=== PATIENT | female | born 2005 | race African-American/Black ===

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

== ENCOUNTER 2023-02-03 04:04 | Emergency (ER) | payer OTHER ==
--- NOTE | 2023-02-03 06:11 | ED ---
General Adult HPI - General Source: patient Mode of arrival: ambulatory Limitations: no limitations <Crispin Dunn - Last Filed: 02/03/23 06:38> <Farhan Campuzano - Last Filed: 02/03/23 08:16> - General Chief complaint: Vaginal Bleeding Stated complaint: Vaginal Bleeding Time Seen by Provider: 02/03/23 05:00 - History of Present Illness Initial comments: Dictation was produced using [employer] dictation software. please excuse any grammatical, word or spelling errors. Chief Complaint: 17-year-old female presents with vaginal bleeding and cramping History of Present Illness: 16-year-old female she last had her menstrual period back in November. She states she has had 2 positive test. She has not followed [facility] yet. States that since yesterday she started to have mild cram ping and vaginal bleeding. States that the cramping and stopped. She did pass couple clots. Patient denies any cramping at the moment. Denies any nausea or vomiting. No lightheadedness. She does have a 1-year-old child. The ROS documented in this emergency department record has been reviewed and confirmed by me. Those systems with pertinent positive or negative responses have been documented in the HPI. All other systems are other negative and/or noncontributory. (Crispin Dunn) - Related Data Home Medications Medication Instructions Recorded Confirmed Vit No.179/Iron/Folic 1 each PO DAILY 12/16/21 12/16/21 [ Tablet] Previous Rx's Medication Instructions Recorded Ibuprofen [Motrin] 600 mg PO Q6HR PRN #60 tab 12/18/21 Cephalexin [Keflex] 500 mg PO Q12HR 7 Days #14 cap 02/03/23 Allergies Allergy/AdvReac Type Severity Reaction Status Date / Time No Known Allergies Allergy Verified 02/03/23 04:55 Review of Systems ROS Other: All systems not noted in ROS Statement are negative. <Crispin Dunn - Last Filed: 02/03/23 06:38> ROS Other: All systems not noted in ROS Statement are negative. <Farhan Campuzano - Last Filed: 02/03/23 08:16> ROS Statement: Those systems with pertinent positive or pertinent negative responses have been documented in the HPI. Past Medical History Past Medical History: No Reported History History of Any Multi-Drug Resistant Organisms: None Reported Past Surgical History: No Surgical Hx Reported Past Anesthesia/Blood Transfusion Reactions: No Reported Reaction Past Psychological History: No Psychological Hx Reported Smoking Status: Never smoker Past Alcohol Use History: None Reported Past Drug Use History: None Reported <Crispin Dunn - Last Filed: 02/03/23 06:38> General Exam Limitations: no limitations <Crispin Dunn - Last Filed: 02/03/23 06:38> - General Exam Comments Initial Comments: PHYSICAL EXAM: General Impression: Alert and oriented x3, not in acute distress HEENT: Normocephalic atraumatic, extra-ocular movements intact, pupils equal and reactive to light bilaterally, mucous membranes moist. Cardiovascular: Heart regular rate and rhythm Chest: Able to complete full sentences, no retractions, no tachypnea Abdomen: abdomen soft, non-tender, non-distended, no organomegaly Musculoskeletal: Pulses present and equal in all extremities, no peripheral edema Motor: no focal deficits noted Neurological: CN II-XII grossly intact, no focal motor or sensory deficits noted Skin: Intact with no visualized rashes Psych: Normal affect and mood Pelvic exam: Refused (Crispin Dunn) Course Vital Signs 02/03/23 04:53 Temperature 98 F Pulse Rate 73 Respiratory 18 Rate Blood Pressure 140/82 O2 Sat by Pulse 100 Oximetry Medical Decision Making <Crispin Dunn - Last Filed: 02/03/23 06:38> - Lab Data Result diagrams: 02/03/23 06:39 02/03/23 06:39 <Farhan Campuzano - Last Filed: 02/03/23 08:16> - Medical Decision Making Was pt. sent in by a medical professional or institution (, PA, PRESS SMITH HELPER, urgent care, hospital, or intermediate...) When possible be specific @ -No Did you speak to anyone other than the patient for history (EMS, parent, family, police, friend...)? What history was obtained from this source @ -No Did you review nursing and triage notes (agree or disagree)? Why? @ -I reviewed and agree with nursing and triage notes Were old charts reviewed (outside hosp., previous admission, EMS record, old EKG, old radiological studies, urgent care reports/EKG's, intermediate records)? Report findings @ -No old charts were reviewed Differential Diagnosis (chest pain, altered mental status, abdominal pain women, abdominal pain men, vaginal bleeding, musculoskeletal, weakness, fever, dyspnea, syncope, headache, dizziness, GI bleed, back pain, seizure, CVA, palpatations, mental health)? @ -Differential Abdominal Pain Women: Appendicitis, Cholecystitis, diverticulosis, ischemic bowel, pancreatitis, hepatitis, UTI, gastroenteritis, AAA, incarcerated hernia, bowel obstruction, constipation, inflammatory bowel, hepatitis, peptic ulcer disease, splenic infarction, perforated viscus, vulvitis, ovarian torsion, PID, kidney stone, jennifer centa abruption, this is not meant to be an all-inclusive list EKG interpreted by me (3pts min.). @ -None done X-rays interpreted by me (1pt min.). @ -None done CT interpreted by me (1pt min.). @ -None done U/S interpreted by me (1pt. min.). @ -pending What testing was considered but not performed or refused? (CT, X-rays, U/S, labs)? Why? @ -None What meds were considered but not given or refused? Why? @ -None Did you discuss the management of the patient with other professionals (professionals i.e. , PA, PRESS SMITH HELPER, lab, RT, psych nurse, secondary social studies teacher, storage brine worker, teacher, health promotion officer, caser shoe parts)? Give summary @ -No Was smoking cessation discussed for >3mins.? @ -No Was critical care preformed (if so, how long)? @ -No Were there social determinants of health that impacted care today? How? (Homelessness, low income, unemployed, alcoholism, drug addiction, transportation, low edu. Level, literacy, decrease access to med. care, nursing home, rehab)? @ -No Was there de-escalation of care discussed even if they declined (Discuss DNR or withdrawal of care, Hospice)? DNR status @ -No What co-morbidities impacted this encounter? (DM, HTN, Smoking, COPD, CAD, Canc er, CVA, ARF, Chemo, Hep., AIDS, mental health diagnosis, sleep apnea, morbid obesity)? @ -None Was patient admitted / discharged? Hospital course, mention meds given and route, prescriptions, significant lab abnormalities, going to OR and other pertinent info. @ -17-year-old female presents with pelvic cramping and vaginal bleeding during alleged . She has not had a menstrual cycle for 2 months. Patient is well-appearing at bedside. Vital signs stable. Pending ultrasound and labs. Patient is signed out to Dr. Campuzano at 7 AM (Crispin Dunn) Ultrasound shows early IUP, patient is a positive, labs are unremarkable. She has follow up with obstetrics. (Farhan Campuzano) - Lab Data Lab Results 02/03/23 02/03/23 02/03/23 Range/Units 06:35 06:39 06:39 WBC 7.4 (4.0-11.0) k/uL RBC 4.14 (3.80-5.40) m/uL Hgb 13.1 (11.4-16.0) gm/dL Hct 39.1 (34.0-46.0) % MCV 94.4 (80.0-100.0) fL MCH 31.6 (25.0-35.0) pg MCHC 33.5 (31.0-37.0) g/dL RDW 13.6 (11.5-15.5) % Plt Count 256 (150-450) k/uL MPV 7.9 Neutrophils % 60 % Lymphocytes % 30 % Monocytes % 6 % Eosinophils % 1 % Basophils % 1 % Neutrophils # 4.5 (1.3-7.7) k/uL Lymphocytes # 2.2 (1.0-4.8) k/uL Monocytes # 0.5 (0-1.0) k/uL Eosinophils # 0.1 (0-0.7) k/uL Basophils # 0.0 (0-0.2) k/uL PT 10.6 (10.0-12.5) sec INR 1.0 (<1.2) APTT 27.2 (22.0-30.0) sec Sodium (137-145) mmol/L Potassium (3.5-5.1) mmol/L Chloride (98-107) mmol/L Carbon Dioxide (22-30) mmol/L Anion Gap mmol/L BUN (7-17) mg/dL Creatinine (0.52-1.04) mg/dL Est GFR (CKD-EPI)AfAm (>60 ml/min/1.73 sqM) Est GFR (CKD-EPI)NonAf (>60 ml/min/1.73 sqM) Glucose (74-99) mg/dL Calcium (8.4-10.2) mg/dL HCG, Quant mIU/mL Urine Color Urine Appearance (Clear) Urine pH (5.0-8.0) Ur Specific [place] (1.001-1.035) Urine Protein (Negative) Urine Glucose (UA) (Negative) Urine Ketones (Negative) Urine Blood (Negative) Urine Nitrite (Negative) Urine Bilirubin (Negative) Urine Urobilinogen (<2.0) mg/dL Ur Leukocyte Esterase (Negative) Urine RBC (0-5) /hpf Urine WBC (0-5) /hpf Ur Squamous Epith Cells (0-4) /hpf Amorphous Sediment (None) /hpf Urine Bacteria (None) /hpf Urine Mucus (None) /hpf Ur Yeast w Hyphae (None) /hpf Urine Yeast (Budding) (None) /hpf Blood Type A Positive Blood Type Recheck A Pos Bld Type Recheck Status No Antibody Screen NEGATIVE Spec Expiration Date 02/06/2023 - 233802/03/23 02/03/23 Range/Units 06:39 07:57 WBC (4.0-11.0) k/uL RBC (3.80-5.40) m/uL Hgb (11.4-16.0) gm/dL Hct (34.0-46.0) % MCV (80.0-100.0) fL MCH (25.0-35.0) pg MCHC (31.0-37.0) g/dL RDW (11.5-15.5) % Plt Count (150-450) k/uL MPV Neutrophils % % Lymphocytes % % Monocytes % % Eosinophils % % Basophils % % Neutrophils # (1.3-7.7) k/uL Lymphocytes # (1.0-4.8) k/uL Monocytes # (0-1.0) k/uL Eosinophils # (0-0.7) k/uL Basophils # (0-0.2) k/uL PT (10.0-12.5) sec INR (<1.2) APTT (22.0-30.0) sec Sodium 138 (137-145) mmol/L Potassium 4.3 (3.5-5.1) mmol/L Chloride 104 (98-107) mmol/L Carbon Dioxide 24 (22-30) mmol/L Anion Gap 10 mmol/L BUN 13 (7-17) mg/dL Creatinine 0.60 (0.52-1.04) mg/dL Est GFR (CKD-EPI)AfAm >90 (>60 ml/min/1.73 sqM) Est GFR (CKD-EPI)NonAf >90 (>60 ml/min/1.73 sqM) Glucose 94 (74-99) mg/dL Calcium 9.3 (8.4-10.2) mg/dL HCG, Quant 1935.6 mIU/mL Urine Color Light Yellow Urine Appearance Cloudy H (Clear) Urine pH 5.5 (5.0-8.0) Ur Specific [place] 1.020 (1.001-1.035) Urine Protein Trace H (Negative) Urine Glucose (UA) Negative (Negative) Urine Ketones Negative (Negative) Urine Blood Large H (Negative) Urine Nitrite Negative (Negative) Urine Bilirubin Negative (Negative) Urine Urobilinogen <2.0 (<2.0) mg/dL Ur Leukocyte Esterase Large H (Negative) Urine RBC 6 H (0-5) /hpf Urine WBC 12 H (0-5) /hpf Ur Squamous Epith Cells 44 H (0-4) /hpf Amorphous Sediment Rare H (None) /hpf Urine Bacteria Occasional H (None) /hpf Urine Mucus Occasional H (None) /hpf Ur Yeast w Hyphae Rare (None) /hpf Urine Yeast (Budding) Rare H (None) /hpf Blood Type Blood Type Recheck Bld Type Recheck Status Antibody Screen Spec Expiration Date Disposition <Crispin Dunn - Last Filed: 02/03/23 06:38> Is patient prescribed a controlled substance at d/c from ED?: No Time of Disposition: 07:52 <Farhan Campuzano - Last Filed: 02/03/23 08:16> Clinical Impression: Vaginal bleeding in , Threatened miscarriage in early , Bacteriuria during in first trimester Disposition: HOME SELF-CARE Condition: Good Instructions (If sedation given, give patient instructions): Threatened Miscarriage (ED) Prescriptions: Cephalexin [Keflex] 500 mg PO Q12HR 7 Days #14 cap Referrals: None,Stated [Primary Care Provider] - 1-2 days Liberty Powers MD [STAFF PHYSICIAN] - 1-2 days
[2023-02-03 06:42] VITALS: RESP 18
[2023-02-03 07:02] LABS: HCT 39.1 % (34.0-46.0); HGB 13.1 gm/dL (11.4-16.0); RBC 4.14 m/uL (3.80-5.40); WBC 7.4 k/uL (4.0-11.0)
[2023-02-03 07:03] LABS: Basophils % (A) 1 %; Eosinophils # (A) 0.1 k/uL (0-0.7); Eosinophils % (A) 1 %; Lymphocytes # (A) 2.2 k/uL (1.0-4.8); Lymphocytes % (A) 30 %; MCH 31.6 pg (25.0-35.0); MCHC 33.5 g/dL (31.0-37.0); MCV 94.4 fL (80.0-100.0); Mean Platelet Volume 7.9; Monocytes # (A) 0.5 k/uL (0-1.0); Monocytes % (A) 6 %; Neutrophils # (A) 4.5 k/uL (1.3-7.7); Neutrophils % (A) 60 %; Platelet Count 256 k/uL (150-450); RDW 13.6 % (11.5-15.5)
[2023-02-03 07:05] LABS: African American GFR (CKD) >90 (>60 ml/min/1.73 sqM); Anion Gap 10 mmol/L; Blood Urea Nitrogen 13 mg/dL (7-17); Calcium 9.3 mg/dL (8.4-10.2); Carbon Dioxide 24 mmol/L (22-30); Chloride 104 mmol/L (98-107); Glucose 94 mg/dL (74-99); Non-African American GFR(CKD) >90 (>60 ml/min/1.73 sqM); Potassium 4.3 mmol/L (3.5-5.1); Sodium 138 mmol/L (137-145)
[2023-02-03 07:06] LABS: Partial Thromboplastin Time 27.2 sec (22.0-30.0); Prothrombin Time 10.6 sec (10.0-12.5)
[2023-02-03 07:21] LABS: HCG,Quantitative Serum 1935.6 mIU/mL
--- NOTE | 2023-02-03 07:34 | US ---
EXAMINATION TYPE: Transabdominal DATE OF EXAM: 02/03/2023 5:51 AM COMPARISON: NONE CLINICAL INDICATION: Female, 17 years old with history of Vaginal bleeding; vaginal bleeding x 1 day. EXAM PERFORMED: Transabdominal (TA) EXAM MEASUREMENTS: GESTATIONAL AGE / DATING Physician Established: Not yet established Dates by LMP: LMP unknown ( Dates by First Scan: No prev Dates by Current Scan for: (6 weeks/1 days) EDC: 09/28/23 MATERNAL ANATOMY Uterus: 9.8 x 5.5 x 5.1cm Right Ovary: 3.4 x 2.6 x 2.3cm Left Ovary: 2.5 x 1.8 x 1.2cm Post CDS / Adnexa: wnl Presence of free fluid: No Presence of corpus luteal cyst: Yes in rt ovary measuring 2.5 x 2.1 x 2.1cm Presence of subchorionic bleed: No GESTATION / SURVEY CRL: 0.5cm (6 weeks/1 days) MSD: 0.85cm Out of range Yolk Sac (normal less than 6mm): 1.6mm Heart Rate: 141 bpm Rhythm: Normal IUP: Viable IUP Date of LMP: N/A Beta HcG (if available): N/A There is an anechoic area seen in the endometrium area with possible fetus. There does appear to be a flickering motion. IMPRESSION: Findings suggest early IUP. Correlate clinically with serial beta hCG and/or ultrasound. Corpus lutea l cyst.
[2023-02-03 08:10] LABS: Amorphous Sediment,Urine Rare /hpf; Appearance,Urine Cloudy (Clear); Bacteria,Urine Occasional /hpf; Bilirubin,Urine Negative (Negative); Blood,Urine Large (Negative); Budding Yeast,Urine Rare /hpf; Color,Urine Light Yellow; Glucose,Urine (UA) Negative (Negative); Hyphae Yeast, Urine Rare /hpf; Ketones,Urine Negative (Negative); Leukocyte Esterase,Urine Large (Negative); Mucus,Urine Occasional /hpf; Nitrite,Urine Negative (Negative); PH, Urine 5.5 (5.0-8.0); Protein,Urine Trace (Negative); RBC,Urine 6 /hpf (0-5); Squamous Epithelial Cell,Urine 44 /hpf (0-4); Urobilinogen,Urine <2.0 mg/dL (<2.0); WBC,Urine 12 /hpf (0-5)
[2023-02-03 08:33] VITALS: BP 107/59; PULSE 72; TEMP 98.3
== END 2023-02-03 08:25 | disposition home or self-care (01) ==
LOC: EC 04:04
DX: O20.0 Threatened abortion (principal); O23.91 Unspecified genitourinary tract infection in pregnancy, first trimester; R82.71 Bacteriuria; Z3A.00 Weeks of gestation of pregnancy not specified
CPT/HCPCS: 36415; 76801; 80048; 81001; 84702; 85025; 85610; 85730; 86850; 86900; 86901; 99284

== ENCOUNTER → 2023-02-05 | Outpatient (CLI) | payer OTHER | END | disposition home or self-care (01) | LOC: LABWHC1 11:33 | PROVIDERS: ATTEND Emergency Medicine | DX: O20.0 Threatened abortion (principal); Z3A.00 Weeks of gestation of pregnancy not specified | CPT/HCPCS: 36415; 84702 ==

== ENCOUNTER → 2023-02-10 | Outpatient (CLI) | payer OTHER ==
[2023-02-10 13:51] LABS: Basophils % (A) 1 %; Eosinophils # (A) 0.1 k/uL (0-0.7); Eosinophils % (A) 3 %; HCT 39.5 % (34.0-46.0); HGB 12.8 gm/dL (11.4-16.0); Lymphocytes # (A) 1.8 k/uL (1.0-4.8); Lymphocytes % (A) 34 %; MCH 30.7 pg (25.0-35.0); MCHC 32.4 g/dL (31.0-37.0); MCV 94.7 fL (80.0-100.0); Mean Platelet Volume 8.4; Monocytes # (A) 0.5 k/uL (0-1.0); Monocytes % (A) 9 %; Neutrophils # (A) 2.6 k/uL (1.3-7.7); Neutrophils % (A) 50 %; Platelet Count 293 k/uL (150-450); RBC 4.17 m/uL (3.80-5.40); RDW 13.7 % (11.5-15.5); WBC 5.2 k/uL (4.0-11.0)
== END | disposition home or self-care (01) ==
LOC: LABPAT 12:49
PROVIDERS: ATTEND Obstetrics & Gynecology
DX: Z01.812 Encounter for preprocedural laboratory examination (principal); O20.0 Threatened abortion; Z3A.00 Weeks of gestation of pregnancy not specified
CPT/HCPCS: 36415; 85025; 86850; 86900; 86901

== ENCOUNTER → 2023-08-12 | Outpatient (CLI) | payer OTHER ==
[2023-08-12 12:08] LABS: Glucose 3 Hour, Gest 139 mg/dL
== END | disposition home or self-care (01) ==
LOC: LABWHC1 08:16
PROVIDERS: ATTEND Obstetrics & Gynecology
DX: O99.810 Abnormal glucose complicating pregnancy (principal); Z3A.00 Weeks of gestation of pregnancy not specified
CPT/HCPCS: 36415; 82951; 82952

== ENCOUNTER 2023-10-27 15:37 | Outpatient (CLI) | payer OTHER ==
[2023-10-27] MEDS ORDERED: ONDANSETRON ODT 8 MG TAB.RAPDIS PO STA (16:30)
[2023-10-27] MEDS: PANTOPRAZOLE 40 MG TABLET PO STA (16:45)
[2023-10-27] MEDS: FAMOTIDINE 20 MG TAB PO STA (16:50)
[2023-10-27] MEDS: ONDANSETRON 4 MG TAB PO STA (16:51)
[2023-10-27 17:33] VITALS: BP 138/66; PULSE 94; RESP 16; TEMP 98.3
--- NOTE | 2023-11-08 16:10 | P.MSEPDOC ---
Presenting Problems - Arrival Data Date of Arrival on Unit: 10/27/23 Time of Arrival on Unit: 17:20 Mode of Transport: Ambulatory - Complaint OB-Reason for Admission/Chief Complaint: Other Comment: pt arrived c/o nausea since yesterday an had a little bit of diarrhea today Medical History - Information : 2 Para: 1 Term: 1 : 0 Abortions: Spontaneous or Elective: 0 Number of Living Children: 1 - Gestational Age Gestational Age by ESTEBAN (wks/days): 28 Weeks and 3 Days Review of Systems - Review of Systems Constitutional: No problems Breast: No problems ENT: No problems Cardiovascular: No problems Respiratory: No problems Gastrointestinal: No problems Genitourinary: No problems Musculoskeletal: No problems Neurological: No problems Skin: No problems Vital Signs - Temperature Temperature: 98.3 F Temperature Source: Oral - Pulse Right Brachial Pulse Rate: 94 Pulse Assessment Method: Automatic Cuff - Respirations Respiratory Rate: 16 Oxygen Delivery Method: Room Air O2 Sat by Pulse Oximetry: 98 - Blood Pressure Right Arm Blood Pressure: 138/66 Blood Pressure Mean: 90 Blood Pressure Source: Automatic Cuff Medical Screen Scoring - Cervical Exam Membranes: Intact - Uterine Contractions Intensity: Absent Resting: Soft to palpation - Assessment - Baby A Baseline FHR: 150 Heart Rate - NICHD Category: Category I (Normal) NST: Reactive Physician Notification - Physician Notified Physician Notified Date: 10/27/23 Physician Notified Time: 16:30 Physician: Liberty Powers Order Received: Yes - Notification Comment Comment: may give zofran 4 mg po and pecide 20mg po. if patient is comfortable and taking fluids after may be discharged to home and have patient keep her scheduled appointment Maternal Triage Index - Non-Urgent/Priority 4 Non-Urgent Priority 4: Yes Criteria Met for Priority 4: pt arrived c/o nausea since last night and a little bit of diarrhea today, pt denies any problems with th just that shes gestational diabetic on diet control. pt states is moving a lot and ot denies any contrations or leaking of fluid Disposition - Disposition OB Disposition: Discharge to home Discharge Date: 10/27/23 Discharge Time: 17:25 I agree with the RN Medical Screening Exam: Yes Physician's MSE Comment: I have neither seen nor examined the patient Case reviewed; plan agreed upon as documented in EMR&OBIX.: Yes Diagnosis: MATERNAL CARE FOR PROBLEM, UNSP, THIRD * DO NOT USE *
== END 2023-10-27 17:25 | disposition home or self-care (01) ==
LOC: FBPOP 15:37
PROVIDERS: ATTEND Obstetrics & Gynecology
DX: O99.613 Diseases of the digestive system complicating pregnancy, third trimester (principal); R19.7 Diarrhea, unspecified; O26.893 Other specified pregnancy related conditions, third trimester; R11.0 Nausea; Z3A.28 28 weeks gestation of pregnancy
CPT/HCPCS: 59025; G0463; 99213

== ENCOUNTER 2023-12-31 19:00 | Outpatient (CLI) | payer OTHER ==
[2023-12-31 20:13] VITALS: BP 138/76; PULSE 100; RESP 16; TEMP 96.5
--- NOTE | 2024-02-03 09:24 | P.MSEPDOC ---
Presenting Problems - Arrival Data Date of Arrival on Unit: 12/31/23 Time of Arrival on Unit: 18:55 Mode of Transport: Ambulatory - Complaint OB-Reason for Admission/Chief Complaint: Rule Out PROM Medical History - Information : 3 Para: 1 Term: 1 : 0 Abortions: Spontaneous or Elective: 1 Number of Living Children: 1 - Gestational Age Gestational Age by ESTEBAN (wks/days): 37 Weeks and 5 Days - History Complications: GDM, GBS+ Review of Systems - Review of Systems Constitutional: No problems Breast: No problems ENT: No problems Cardiovascular: No problems Respiratory: No problems Gastrointestinal: No problems Genitourinary: No problems Musculoskeletal: No problems Neurological: No problems Skin: No problems Vital Signs - Temperature Temperature: 96.5 F Temperature Source: Temporal Artery Scan - Pulse Pulse Oximetery Pulse Rate: 100 Pulse Assessment Method: Pulse Oximetry - Respirations Respiratory Rate: 16 Oxygen Delivery Method: Room Air - Blood Pressure Right Arm Blood Pressure: 138/76 Blood Pressure Mean: 96 Blood Pressure Source: Automatic Cuff Medical Screen Scoring - Cervical Exam Dilation (cm): 1 Effacement (%): 0 Station: 1 Membranes: Intact - Assessment - Baby A Baseline FHR: 130 Heart Rate - NICHD Category: Category I (Normal) NST: Reactive Physician Notification - Physician Notified Physician Notified Date: 12/31/23 Physician Notified Time: 19:32 Physician: Katty Pham New Order Received: Yes (Discharge home) - Notification Comment Comment: Report to of patient complaint of leaking of fluid with discharge, NST reactive, Cervical exam 1/50/high, negative amnisure, no contractions, elevated initial blood pressure that came down with repeat B/P reading. Orders for patient to go home and can try over the counter monistat. Maternal Triage Index - Maternal Triage Index Presenting for scheduled procedure w/no complaint: No - Stat/Priority 1 Stat Priority 1: No - Urgent/Priority 2 Urgent Priority 2: No - Prompt/Priority 3 Prompt Priority 3: Yes Criteria Met for Priority 3: Patient stated she had some leaking of fluid Disposition - Disposition OB Disposition: Discharge to home Discharge Date: 12/31/23 Discharge Time: 19:40 I agree with the RN Medical Screening Exam: Yes Case reviewed; plan agreed upon as documented in EMR&OBIX.: Yes Diagnosis: FALSE LABOR AT OR AFTER 37 COMPLETED WEEKS OF GESTATION
== END 2023-12-31 19:40 | disposition home or self-care (01) ==
LOC: FBPOP 19:00
PROVIDERS: ATTEND Obstetrics & Gynecology Obstetrics
CPT/HCPCS: 59025; 84112

== ENCOUNTER 2024-01-10 05:54 | Inpatient (IN) | payer OTHER ==
[2024-01-10] MEDS ORDERED: miSOPROStoL 200 MCG TAB PO PRN (06:38)
[2024-01-10] MEDS ORDERED: TERBUTALINE 1 MG/ML VIAL SQ PRN (06:38)
[2024-01-10] MEDS ORDERED: TRANEXAMIC 1,000 MG/100ML-NACL 1,000 MG in EMPTY BAG 1 BAG IV PRN (06:38)
[2024-01-10] MEDS ORDERED: METHYLERGONOVINE 0.2 MG/ML 1 ML AMP IM PRN (06:38)
[2024-01-10] MEDS ORDERED: OXYTOCIN 10 UNIT/ML 1 ML VIAL IM PRN (06:38)
[2024-01-10] MEDS ORDERED: miSOPROStoL 200 MCG TAB RECTAL PRN (06:38)
[2024-01-10] MEDS ORDERED: CARBOPROST TROMETHAMINE 250 MCG/ML 1 ML AMP IM PRN (06:38)
[2024-01-10] MEDS: LACTATED RINGERS 1,000 ML IV SCH (06:42)
[2024-01-10] MEDS: OXYTOCIN 30 UNITS/500 ML NS 30 UNIT in SALINE 1 500ML.BAG IV SCH (06:45)
[2024-01-10 07:01] LABS: Basophils % (A) 0 %; Eosinophils # (A) 0.1 k/uL (0-0.7); Eosinophils % (A) 2 %; HCT 31.4 % (34.0-46.0); HGB 10.5 gm/dL (11.4-16.0); Lymphocytes # (A) 1.6 k/uL (1.0-4.8); Lymphocytes % (A) 24 %; MCH 29.2 pg (25.0-35.0); MCHC 33.5 g/dL (31.0-37.0); MCV 87.2 fL (80.0-100.0); Mean Platelet Volume 8.8; Monocytes # (A) 0.5 k/uL (0-1.0); Monocytes % (A) 8 %; Neutrophils # (A) 4.4 k/uL (1.3-7.7); Neutrophils % (A) 64 %; Platelet Count 263 k/uL (150-450); RDW 14.6 % (11.5-15.5); WBC 6.8 k/uL (4.0-11.0)
[2024-01-10] MEDS: PENICILLIN G POTASSIUM 5,000,000 UNIT in DEXTROSE 5% IN WATER 100 ML IVPB STA (07:14)
[2024-01-10 07:22] LABS: Glucose,Whole Blood 97 mg/dL (70-110)
--- NOTE | 2024-01-10 08:52 | P.HPOB ---
History of Present Illness H&P Date: 01/10/24 Chief Complaint: Medical induction of labor Ms. Boateng is a 18 year old at 39 weeks and 1 day with EDC of 01/16/2024 by 9 week who presents for medical induction of labor for diet-controlled gestational diabetes. Her blood sugars have been overwhelmingly within target range since diagnosis. For GDM, the patient has undergone surveillance that has all been reassuring. The fetus is estimated to be in the 36%ile for growth based on a 32 week US. Obstetric history: 1 FTVD, 6#11oz, no complications work-up: blood type A positive, antibody screen negative, rubella immune, VDRL non-reactive, HBsAg negative, HIV negative, HCV negative, gonorrhea negative, chlamydia negative, 3 hour GTT abnormal, GBS positive. Past Medical History Past Medical History: No Reported History History of Any Multi-Drug Resistant Organisms: None Reported Past Surgical History: No Surgical Hx Reported Past Anesthesia/Blood Transfusion Reactions: No Reported Reaction Past Psychological History: No Psychological Hx Reported Smoking Status: Never smoker Past Alcohol Use History: None Reported Past Drug Use History: None Reported - Past Family History Mother Family Medical History: No Reported History Medications and Allergies Home Medications Medication Instructions Recorded Confirmed Type Vit No.179/Iron/Folic 1 each PO DAILY 12/16/21 01/10/24 History [ Tablet] Allergies Allergy/AdvReac Type Severity Reaction Status Date / Time No Known Allergies Allergy Verified 01/10/24 06:21 Exam Vital Signs Temp Pulse Resp BP Pulse Ox 01/10/24 06:21 97.0 F L 97 16 131/78 95 Intake and Output 01/09/24 01/10/24 01/10/24 22:59 06:59 14:59 Other: # Voids 1 Weight 97.522 kg Focused physical exam is performed. This is a healthy-appearing in no apparent distress. Breathing is non-labored. Abdomen is gravid and non-tender. Cervical exam is 5 cm, 90 effacement, -2 station. AROM is undertaken with clear fluid noted. Extremities non-tender and non-edematous. heart tones are Category I and tocometer is graphing contractions every 2-4 minutes. Results Result Diagrams: 01/10/24 06:40 Abnormal Lab Results - Last 24 Hours (Table) 01/10/24 Range/Units 06:40 RBC 3.60 L (3.80-5.40) m/uL Hgb 10.5 L (11.4-16.0) gm/dL Hct 31.4 L (34.0-46.0) % Assessment and Plan Assessment: 18 year old at 39 weeks and 2 days here for medical IOL for A1GDM Plan: Admit, clear liquid diet, fasting BS normal this AM, pitocin per protocol, epidural prn, continuous EFM and tocometer. Anticipate vaginal delivery. Time with Patient: Less than 30
[2024-01-10] MEDS ORDERED: ROPIVACAINE 5 MG/ML 30 ML VIAL ONE (09:09)
[2024-01-10] MEDS ORDERED: SODIUM CHLORIDE 0.9% 250 ML BAG ONE (09:09)
[2024-01-10] MEDS ORDERED: fentaNYL (PF) 50 MCG/ML 5 ML AMP ONE (09:09)
[2024-01-10] MEDS ORDERED: ACETAMINOPHEN TAB 325 MG TAB PO PRN (11:25)
[2024-01-10] MEDS ORDERED: diphenhydrAMINE 50 MG CAP PO PRN (11:25)
[2024-01-10] MEDS ORDERED: diphenhydrAMINE 25 MG CAP PO PRN (11:25)
[2024-01-10] MEDS ORDERED: SIMETHICONE 80 MG CHEWABLE PO PRN (11:25)
[2024-01-10] MEDS ORDERED: HYDROCORTISONE 2.5% RECTAL CREAM 30 GM TUBE RECTAL PRN (11:25)
[2024-01-10] MEDS ORDERED: diphenhydrAMINE 50 MG/ML 1 ML VIAL IVP PRN ×2 (11:25)
[2024-01-10] MEDS ORDERED: LANOLIN CREAM 1 GM TUBE TOPICAL PRN (11:25)
[2024-01-10] MEDS ORDERED: BENZOCAINE/MENTHOL SPRAY 1 GM/SPRAY AEROSOL TOPICAL PRN (11:25)
[2024-01-10] MEDS ORDERED: ZOLPIDEM 5 MG TAB PO PRN (11:25)
--- NOTE | 2024-01-10 11:25 | P.PROBDLV ---
Vaginal Delivery Note - . Vaginal Delivery Note: DATE OF SERVICE: 01/10/2024 PROCEDURE: Normal Vaginal Delivery ATTENDING: Dr. Liberty Powers MD ESTIMATED BLOOD LOSS: 200 mL FINDINGS: VMI, Apgars 9/9. Weight 7 pounds and 12 ounces (3515 grams) PROCEDURE: Ms. Boateng is a 18 year old at 39 weeks and 1 day presenting to labor and delivery for medical induction of labor. The has been complicated by diet-controlled gestational diabetes. For further details, please review the admitting H&P. PCN was given for GBS prophylaxis with first dose at 715. Pitocin was titrated per protocol. AROM was performed at 821 revealing clear amniotic fluid. The patient received epidural anesthesia per her request. The patient was completely dilated at 1049. She pushed effectively with Category I heart tones. A viable male infant was delivered at 1104. The infant was placed on the maternal abdomen and bulb suctioned. The infant was noted to be spontaneously crying. Cord was clamped and cut after a 60-second delay. The infant was handed off to the pediatric team. Placenta was delivered whole with gentle cord traction at 1107. Oxytocin was started to facilitate uterine tone. Uterine fundus was found to be firm and below the umbilicus upon fundal massage. Thorough examination of the cervix, vagina, periurethral area, and perineum revealed a second degree perineal laceration. The perineum was infiltrated with lidocaine and repaired with 2-0 Vicryl in the standard fashion. The patient is stable and allowed to begin the bonding process.
[2024-01-10] MEDS: LIDOCAINE 0.5% (PF) 5 MG/ML (50 ML SDV) SQ PRN (11:30)
[2024-01-10] MEDS: IBUPROFEN 600 MG TAB PO PRN (18:38)
[2024-01-10] MEDS: PENICILLIN G POTASSIUM 2,500,000 UNIT in DEXTROSE 5% IN WATER 100 ML IVPB SCH (22:05)
[2024-01-10] MEDS: SENNOSIDES-DOCUSATE SODIUM 1 EACH TAB PO SCH (22:06)
[2024-01-11 07:19] LABS: Basophils % (A) 0 %; Eosinophils # (A) 0.1 k/uL (0-0.7); Eosinophils % (A) 1 %; HCT 28.4 % (34.0-46.0); HGB 9.4 gm/dL (11.4-16.0); Hypochromasia Slight; Lymphocytes # (A) 2.2 k/uL (1.0-4.8); Lymphocytes % (A) 30 %; MCH 29.1 pg (25.0-35.0); MCV 88.1 fL (80.0-100.0); Mean Platelet Volume 9.4; Monocytes # (A) 0.6 k/uL (0-1.0); Monocytes % (A) 8 %; Neutrophils # (A) 4.3 k/uL (1.3-7.7); Neutrophils % (A) 59 %; Platelet Count 219 k/uL (150-450); RBC 3.23 m/uL (3.80-5.40); RDW 14.8 % (11.5-15.5); WBC 7.4 k/uL (4.0-11.0)
--- NOTE | 2024-01-11 16:45 | P.PNOBGVD ---
Subjective - Subjective Principal diagnosis: s/p vaginal delivery Interval history: Patient doing well this morning. Pain well controlled, lochia light, ambulating normally, voiding normally, eating and drinking normally. No fevers or chills overnight. No chest pain or shortness of breath. Patient planning to breastfeed. Infant in the nursery for elevated hematocrit. Patient would like to stay an additional night to be with the . Patient reports: Reports appetite normal, Reports voiding normally, Reports pain well controlled, Reports ambulating normally : doing well Objective - Latest Vital Signs Latest vital signs: Vital Signs Temp Pulse Resp BP Pulse Ox 01/11/24 16:00 98.8 F 69 16 126/77 98 01/11/24 08:09 98.1 F 74 14 108/69 01/11/24 00:51 97.6 F 75 16 110/62 98 01/10/24 22:02 97.5 F L 82 16 116/77 97 - Exam Extremities: Present: normal Abdomen: Present: normal appearance, soft Uterus: Present: normal, firm - Labs Labs: Abnormal Lab Results - Last 24 Hours (Table) 01/11/24 Range/Units 06:56 RBC 3.23 L (3.80-5.40) m/uL Hgb 9.4 L (11.4-16.0) gm/dL Hct 28.4 L (34.0-46.0) % Assessment and Plan Assessment: 18 year old now PPD#1 s/p normal vaginal delivery after induction of labor for A1GDM Plan: Patient meeting all milestones appropriately. Continue inpatient management at this time. Anticipate discharge home tomorrow on PPD#2.
--- NOTE | 2024-01-12 08:57 | P.DS ---
Providers Date of admission: 01/10/24 05:54 Expected date of discharge: 01/12/24 Attending physician: Liberty Powers MD Primary care physician: Stated None Hospital Course: Ms. Boateng is a 18 year old now PPD#2 s/p normal vaginal delivery. The patient is doing well this morning and had no acute events overnight. She has no complaints this morning. She reports minimal lochia, passing flatus, voiding without difficulty, ambulating, and eating/drinking without nausea or vomiting. doing well at bedside, s/p circumcision. She denies chest pain, shortness of breathing, fevers, or chills overnight. She denies pain or swelling in the legs. restrictions are reviewed with the patient including pelvic rest for 6 weeks. The patient is encouraged to call the office if she experiences any heavy bleeding, foul-smelling discharge, breast complaints, or any if she has any other concerns. She will follow up in the office with in 6 weeks for exam. All questions are answered. Health Concerns: 18 year old now PPD#2 s/p normal vaginal delivery Patient Condition at Discharge: Good Plan - Discharge Summary New Discharge Prescriptions: No Action Vit No.179/Iron/Folic [ Tablet] 1 each PO DAILY Discharge Medication List Vit No.179/Iron/Folic [ Tablet] 1 each PO DAILY 12/16/21 [History] Follow up Appointment(s)/Referral(s): Liberty Powers MD [STAFF PHYSICIAN] - 02/21/24 3:15 pm Activity/Diet/Wound Care/Special Instructions: Instructions 1. Do not begin any exercise program for 3 weeks. 2. Do not resume sexual relations for 6 weeks or longer if uncomfortable. 3. You may take tub baths or showers at any time. 4. You may use tampons if desired after 6 weeks. 5. Keep any areas repaired with stitches clean and dry. 6. If you are not nursing, wear a good fitting, supportive bra during the day and limit fluid intake for at least 1 week to prevent breast engorgement. 7. Call the office, , within the next week to make appointment for your 6 week checkup if it has not already been made. 8. Report any of the following occurrences to the doctor promptly: a. Heavy, excessive bleeding b. Chills, fever c. Burning or frequency of urination d. Pain or redness and breasts if nursing e. Increasing pain or swelling of vulva (stitches). In addition to the above instructions, the following additional should be followed: 1. No heavy lifting or straining (exercising) until after 6 week checkup. 2. Keep abdominal incision clean and dry: You may wear a dressing if more comfortable. 3. Make office appointment for 2 weeks after delivery date. Discharge Disposition: HOME SELF-CARE
[2024-01-12 10:14] VITALS: BP 121/75; PULSE 75; RESP 16; TEMP 97.9
== END 2024-01-12 10:56 | disposition home or self-care (01) | DRG 560 ==
LOC: 4FBP 05:54
PROVIDERS: ADMIT Obstetrics & Gynecology; ATTEND Obstetrics & Gynecology
PROC: 10E0XZZ Delivery of Products of Conception, External Approach (ICD-10-PCS; principal; 2024-01-10)
PROC: 0KQM0ZZ Repair Perineum Muscle, Open Approach (ICD-10-PCS; 2024-01-10)
PROC: 10907ZC Drainage of Amniotic Fluid, Therapeutic from Products of Conception, Via Natural or Artificial Opening (ICD-10-PCS; 2024-01-10)
PROC: 3E033VJ Introduction of Other Hormone into Peripheral Vein, Percutaneous Approach (ICD-10-PCS; 2024-01-10)
PROC: 4A1HXCZ Monitoring of Products of Conception, Cardiac Rate, External Approach (ICD-10-PCS; 2024-01-10)
DX: O24.420 Gestational diabetes mellitus in childbirth, diet controlled (principal); O70.1 Second degree perineal laceration during delivery; O99.824 Streptococcus B carrier state complicating childbirth; Z3A.39 39 weeks gestation of pregnancy; Z37.0 Single live birth
CPT/HCPCS: 85025; 86850; 86900; 86901

== ENCOUNTER 2024-06-16 01:15 | Emergency (ER) | payer OTHER ==
--- NOTE | 2024-06-16 01:34 | ED ---
Abdominal Pain HPI <SarahByron - Last Filed: 06/16/24 04:16> - General Source: patient, RN notes reviewed Mode of arrival: ambulatory - History of Present Illness MD Complaint: abdominal pain Onset/Timin -: days(s) Location: epigastric Radiation: none Migration to: other (Hypogastric) Quality: other ("Pulling") Consistency: intermittent Improves With: eating Context: other () Associated Symptoms: nausea, vomiting, other (Vaginal discharge) <Albin Esqueda - Last Filed: 06/16/24 22:27> - General Chief Complaint: Abdominal Pain Stated Complaint: Pelvic pain- Time Seen by Provider: 06/16/24 01:29 - History of Present Illness Initial Comments: This is a 19-year-old female complaining of lower abdominal pain x 4 days. Patient describes pain as "pulling" that occurs both when standing and when seated. States pain slightly relieved when eating. Patient states that she is but is unsure of exact date of last menstrual period, stating she discovered she was in late April. Patient is also 5 months with normal vaginal delivery on 01/10/2024. States pain started as upper abdominal pain for 2 days before having lower abdominal pain that started today. Also endorses chills, fatigue, oliguria and a yellow, musty vaginal discharge x 1 month. Denies fever, vaginal bleeding/spotting, dysuria, hematuria. Patient endorses being in a monogamous relationship for the past 6 years. (Albin Esqueda) - Related Data Home Medications Medication Instructions Recorded Confirmed Vit No.179/Iron/Folic 1 each PO DAILY 12/16/21 01/10/24 [ Tablet] Previous Rx's Medication Instructions Recorded Cephalexin [Keflex] 500 mg PO Q8HR 1 Days #30 cap 06/16/24 Allergies Allergy/AdvReac Type Severity Reaction Status Date / Time Penicillins Allergy Rash/Hives Verified 06/16/24 01:25 Review of Systems ROS Other: All systems not noted in ROS Statement are negative. <Byron Smith - Last Filed: 06/16/24 04:16> ROS Other: All systems not noted in ROS Statement are negative. <Albin Esqueda - Last Filed: 06/16/24 22:27> ROS Statement: Those systems with pertinent positive or pertinent negative responses have been documented in the HPI. Past Medical History Past Medical History: No Reported History History of Any Multi-Drug Resistant Organisms: None Reported Past Surgical History: No Surgical Hx Reported Past Anesthesia/Blood Transfusion Reactions: No Reported Reaction Past Psychological History: No Psychological Hx Reported Smoking Status: Never smoker Past Alcohol Use History: None Reported Past Drug Use History: None Reported - Past Family History Mother Family Medical History: No Reported History <DheerajAlbin - Last Filed: 06/16/24 22:27> General Exam General appearance: alert, in no apparent distress Head exam: Present: atraumatic, normocephalic, normal inspection Eye exam: Present: normal appearance, PERRL, EOMI. Absent: scleral icterus, conjunctival injection, periorbital swelling ENT exam: Present: normal exam, mucous membranes moist Neck exam: Present: normal inspection. Absent: tenderness, meningismus, lymphadenopathy Respiratory exam: Present: normal lung sounds bilaterally. Absent: respiratory distress, wheezes, rales, rhonchi, stridor Cardiovascular Exam: Present: regular rate, normal rhythm, normal heart sounds. Absent: systolic murmur, diastolic murmur, rubs, gallop, clicks GI/Abdominal exam: Present: soft, distended, tenderness (Diffuse, exquisite tenderness, especially RUQ and epigastric region. Positive diffuse, exquisite tympanic tenderness), guarding, rebound, diminished bowel sounds, hypoactive bowel sounds, other (Later abdominal examination performed by Dr. Smith revealed no peritoneal tenderness). Absent: rigid Extremities exam: Present: normal inspection, full ROM, normal capillary refill. Absent: tenderness, pedal edema, joint swelling, calf tenderness Back exam: Present: normal inspection Neurological exam: Present: alert, oriented X3, CN II-XII intact Psychiatric exam: Present: normal affect, normal mood Skin exam: Present: warm, dry, intact, normal color. Absent: rash <Albin Esqueda - Last Filed: 06/16/24 22:27> Course Vital Signs 06/16/24 06/16/24 06/16/24 01:16 01:38 02:34 Temperature 97.4 F L Pulse Rate 103 H 102 H 94 Respiratory 18 19 19 Rate Blood Pressure 131/72 148/88 132/58 O2 Sat by Pulse 100 100 100 Oximetry 06/16/24 06/16/2406/16/25 04:03 05:19 06:38 Temperature 98.3 F 97.9 F 97.8 F Pulse Rate 91 75 88 Respiratory 18 Rate Blood Pressure 114/57 124/65 103/84 O2 Sat by Pulse 99 98 98 Oximetry Medical Decision Making - Lab Data Result diagrams: 06/16/24 02:26 06/16/24 02:26 <Byron Smith - Last Filed: 06/16/24 04:16> - Lab Data Result diagrams: 06/16/24 02:26 06/16/24 02:26 <Albin Esqueda - Last Filed: 06/16/24 22:27> - Medical Decision Making Was pt. sent in by a medical professional or institution (, PA, [facility] [place], urgent care, hospital, or assisted...) When possible be specific @ -No Did you speak to anyone other than the patient for history (EMS, parent, family, police, friend...)? What history was obtained from this source @ -No Did you review nursing and triage notes (agree or disagree)? Why? @ -I reviewed and agree with nursing and triage notes Were old charts reviewed (outside hosp., previous admission, EMS record, old EKG, old radiological studies, urgent care reports/EKG's, assisted records)? Report findings @ -No old charts were reviewed Differential Diagnosis (chest pain, altered mental status, abdominal pain women, abdominal pain men, vaginal bleeding, weakness, fever, dyspnea, syncope, headache, dizziness, GI bleed, back pain, seizure, CVA, palpatations, mental health, musculoskeletal)? @ -Differential Abdominal Pain Women: Appendicitis, Cholecystitis, diverticulosis, ischemic bowel, pancreatitis, hepatitis, UTI, gastroenteritis, AAA, incarcerated hernia, bowel obstruction, constipation, inflammatory bowel, hepatitis, peptic ulcer disease, splenic infarction, perforated viscus, vulvitis, ovarian torsion, PID, kidney stone, placenta abruption, this is not meant to be an all-inclusive list EKG interpreted by me (3pts min.). @ -Not done X-rays interpreted by me (1pt min.). @ -None done CT interpreted by me (1pt min.). @ -None done U/S interpreted by me (1pt. min.). @ -RUQ abdominal ultrasound shows no acute abnormality of liver, gallbladder, bile duct, pancreas, right kidney. Obstetric transabdominal ultrasound shows single live intrauterine 8 weeks 6 days. No ovarian mass subchorionic hemorrhage or adnexal free fluid/mass. What testing was considered but not performed or refused? (CT, X-rays, U/S, labs)? Why? @ -None What meds were considered but not given or refused? Why? @ -Patient declined IV Reglan and p.o. Tylenol for nausea and pain. Did you discuss the management of the patient with other professionals (professionals i.e. DrMatthew, PA, [facility] [place], lab, RT, psych nurse, social media developer, corporation lawyer, teacher, credit control officer, shelter case manager)? Give summary @ -No Was smoking cessation discussed for >3mins.? @ -No Was critical care preformed (if so, how long)? @ -No Were there social determinants of health that impacted care today? How? (Homelessness, low income, unemployed, alcoholism, drug addiction, transportation, low edu. Level, literacy, decrease access to med. care, prison, rehab)? @ -No Was there de-escalation of care discussed even if they declined (Discuss DNR or withdrawal of care, Hospice)? DNR status @ -No What co-morbidities impacted this encounter? (DM, HTN, Smoking, COPD, CAD, Cancer, CVA, ARF, Chemo, Hep., AIDS, mental health diagnosis, sleep apnea, morbid obesity)? @ -None Was patient admitted / discharged? Hospital course, mention meds given and route, prescriptions, significant lab abnormalities, going to OR and other p ertinent info. @ -Lab work largely unremarkable except CRP 1.7. Quantitative hCG 103K. UA shows UTI. Chlamydia/gonorrhea negative. RUQ abdominal ultrasound shows no acute abnormality of liver, gallbladder, bile duct, pancreas, right kidney. Obstetric transabdominal ultrasound shows single live intrauterine 8 weeks 6 days. No ovarian mass subchorionic hemorrhage or adnexal free fluid/mass. Patient initially provided IV normal saline. IV Rocephin given for UTI. Keflex sent to patient's pharmacy. Dr. Smith performed follow-up physical examination on patient as well, noting no peritoneal type pain or exquisite tenderness. Advised follow-up with PCP/PAINTER AND BODY MECHANIC APPRENTICE for any ongoing abdominal pain or vaginal discharge. Discussed patient with Dr. Smith. Undiagnosed new problem with uncertain prognosis? @ -No Drug Therapy requiring intensive monitoring for toxicity (Heparin, Nitro, Insulin, Cardizem)? @ -No Were any procedures done? @ -No Diagnosis/symptom? @ -Urinary tract infection during Acute, or Chronic, or Acute on Chronic? @ -Acute Uncomplicated (without systemic symptoms) or Complicated (systemic symptoms)? @ -Complicated Side effects of treatment? @ -No Exacerbation, Progression, or Severe Exacerbation? @ -No Poses a threat to life or bodily function? How? (Chest pain, USA, CT, pneumonia, PE, COPD, DKA, ARF, appy, cholecystitis, CVA, Diverticulitis, Homicidal, Suicidal, threat to staff... and all critical care pts) @ -No (Albin Esqueda) - Lab Data Lab Results 06/16/24 06/16/24 06/16/24 Range/Units 02:26 02:26 02:26 WBC 9.0 (3.8-10.6) k/uL RBC 4.17 (3.80-5.40) m/uL Hgb 12.6 (11.4-16.0) gm/dL Hct 39.2 (34.0-46.0) % MCV 94.0 (80.0-100.0) fL MCH 30.1 (25.0-35.0) pg MCHC 32.0 (31.0-37.0) g/dL RDW 14.0 (11.5-15.5) % Plt Count 267 (150-450) k/uL MPV 7.6 Neutrophils % 67 % Lymphocytes % 24 % Monocytes % 6 % Eosinophils % 2 % Basophils % 0 % Neutrophils # 6.0 (1.3-7.7) k/uL Lymphocytes # 2.1 (1.0-4.8) k/uL Monocytes # 0.5 (0-1.0) k/uL Eosinophils # 0.2 (0-0.7) k/uL Basophils # 0.0 (0-0.2) k/uL Sodium 135 L (137-145) mmol/L Potassium 4.3 (3.5-5.1) mmol/L Chloride 103 (98-107) mmol/L Carbon Dioxide 21 L (22-30) mmol/L Anion Gap 11 mmol/L BUN 14 (7-17) mg/dL Creatinine 0.53 (0.52-1.04) mg/dL Est GFR (CKD-EPI)AfAm >90 (>60 ml/min/1.73 sqM) Est GFR (CKD-EPI)NonAf >90 (>60 ml/min/1.73 sqM) Glucose 102 H (74-99) mg/dL Plasma Lactic Acid René 1.8 (0.7-2.0) mmol/L Calcium 9.4 (8.4-10.2) mg/dL Total Bilirubin 0.4 (0.2-1.3) mg/dL AST 22 (14-36) U/L ALT 16 (4-34) U/L Alkaline Phosphatase 56 (38-126) U/L C-Reactive Protein 1.7 H (<1.0) mg/dL Total Protein 7.2 (6.3-8.2) g/dL Albumin 4.2 (3.5-5.0) g/dL Amylase 50 (30-110) U/L Lipase 52 (23-300) U/L HCG, Quant 364323.0 mIU/mL Urine Color Urine Appearance (Clear) Urine pH (5.0-8.0) Ur Specific [place] (1.001-1.035) Urine Protein (Negative) Urine Glucose (UA) (Negative) Urine Ketones (Negative) Urine Blood (Negative) Urine Nitrite (Negative) Urine Bilirubin (Negative) Urine Urobilinogen (<2.0) mg/dL Ur Leukocyte Esterase (Negative) Urine RBC (0-5) /hpf Urine WBC (0-5) /hpf Ur Squamous Epith Cells (0-4) /hpf Urine Bacteria (None) /hpf Urine Mucus (None) /hpf Chlamydia DNA (PCR) (Negative) N.gonorrhoeae DNA Probe (Negative) Blood Type Blood Type Recheck Bld Type Recheck Status 06/16/24 06/16/24 06/16/24 Range/Units 02:26 02:35 02:35 WBC (3.8-10.6) k/uL RBC (3.80-5.40) m/uL Hgb (11.4-16.0) gm/dL Hct (34.0-46.0) % MCV (80.0-100.0) fL MCH (25.0-35.0) pg MCHC (31.0-37.0) g/dL RDW (11.5-15.5) % Plt Count (150-450) k/uL MPV Neutrophils % % Lymphocytes % % Monocytes % % Eosinophils % % Basophils % % Neutrophils # (1.3-7.7) k/uL Lymphocytes # (1.0-4.8) k/uL Monocytes # (0-1.0) k/uL Eosinophils # (0-0.7) k/uL Basophils # (0-0.2) k/uL Sodium (137-145) mmol/L Potassium (3.5-5.1) mmol/L Chloride (98-107) mmol/L Carbon Dioxide (22-30) mmol/L Anion Gap mmol/L BUN (7-17) mg/dL Creatinine (0.52-1.04) mg/dL Est GFR (CKD-EPI)AfAm (>60 ml/min/1.73 sqM) Est GFR (CKD-EPI)NonAf (>60 ml/min/1.73 sqM) Glucose (74-99) mg/dL Plasma Lactic Acid René (0.7-2.0) mmol/L Calcium (8.4-10.2) mg/dL Total Bilirubin (0.2-1.3) mg/dL AST (14-36) U/L ALT (4-34) U/L Alkaline Phosphatase (38-126) U/L C-Reactive Protein (<1.0) mg/dL Total Protein (6.3-8.2) g/dL Albumin (3.5-5.0) g/dL Amylase (30-110) U/L Lipase (23-300) U/L HCG, Quant mIU/mL Urine Color Yellow Urine Appearance Cloudy H (Clear) Urine pH 6.0 (5.0-8.0) Ur Specific [place] 1.034 (1.001-1.035) Urine Protein Trace H (Negative) Urine Glucose (UA) Negative (Negative) Urine Ketones Negative (Negative) Urine Blood Small H (Negative) Urine Nitrite Negative (Negative) Urine Bilirubin Negative (Negative) Urine Urobilinogen <2.0 (<2.0) mg/dL Ur Leukocyte Esterase Large H (Negative) Urine RBC 2 (0-5) /hpf Urine WBC 62 H (0-5) /hpf Ur Squamous Epith Cells 16 H (0-4) /hpf Urine Bacteria Rare H (None) /hpf Urine Mucus Rare H (None) /hpf Chlamydia DNA (PCR) Negative (Negative) N.gonorrhoeae DNA Probe Negative (Negative) Blood Type A Positive Blood Type Recheck A Pos Bld Type Recheck Status No Disposition <Byron Smith - Last Filed: 06/16/24 04:16> Is patient prescribed a controlled substance at d/c from ED?: No Time of Disposition: 06:45 <Albin Esqueda - Last Filed: 06/16/24 22:27> Clinical Impression: UTI (urinary tract infection) Disposition: HOME SELF-CARE Condition: Good Instructions (If sedation given, give patient instructions): Urinary Tract Infection in (ED) Additional Instructions: Follow-up with PCP/PAINTER AND BODY MECHANIC APPRENTICE regarding ongoing abdominal pain and vaginal discharge. Prescriptions: Cephalexin [Keflex] 500 mg PO Q8HR 1 Days #30 cap Referrals: None,Stated [Primary Care Provider] - 1-2 days Emily Pinzon DO [Doctor of Osteopathic Medicine] - 1-2 days
[2024-06-16] MEDS: SODIUM CHLORIDE 0.9% 1,000 ML IV STA (02:33)
[2024-06-16 03:00] LABS: Basophils % (A) 0 %; Eosinophils # (A) 0.2 k/uL (0-0.7); Eosinophils % (A) 2 %; HCT 39.2 % (34.0-46.0); HGB 12.6 gm/dL (11.4-16.0); Lymphocytes # (A) 2.1 k/uL (1.0-4.8); Lymphocytes % (A) 24 %; MCH 30.1 pg (25.0-35.0); Mean Platelet Volume 7.6; Monocytes # (A) 0.5 k/uL (0-1.0); Monocytes % (A) 6 %; Neutrophils % (A) 67 %; Platelet Count 267 k/uL (150-450); RBC 4.17 m/uL (3.80-5.40)
[2024-06-16 03:16] LABS: ALT 16 U/L (4-34); AST 22 U/L (14-36); African American GFR (CKD) >90 (>60 ml/min/1.73 sqM); Albumin 4.2 g/dL (3.5-5.0); Alkaline Phosphatase 56 U/L (38-126); Amylase 50 U/L (30-110); Anion Gap 11 mmol/L; Blood Urea Nitrogen 14 mg/dL (7-17); C Reactive Protein 1.7 mg/dL (<1.0); Calcium 9.4 mg/dL (8.4-10.2); Carbon Dioxide 21 mmol/L (22-30); Chloride 103 mmol/L (98-107); Glucose 102 mg/dL (74-99); Lipase 52 U/L (23-300); Non-African American GFR(CKD) >90 (>60 ml/min/1.73 sqM); Potassium 4.3 mmol/L (3.5-5.1); Sodium 135 mmol/L (137-145); Total Bilirubin 0.4 mg/dL (0.2-1.3); Total Protein 7.2 g/dL (6.3-8.2)
[2024-06-16 03:22] LABS: Appearance,Urine Cloudy (Clear); Bacteria,Urine Rare /hpf; Bilirubin,Urine Negative (Negative); Blood,Urine Small (Negative); Color,Urine Yellow; Glucose,Urine (UA) Negative (Negative); Ketones,Urine Negative (Negative); Leukocyte Esterase,Urine Large (Negative); Mucus,Urine Rare /hpf; Nitrite,Urine Negative (Negative); Protein,Urine Trace (Negative); RBC,Urine 2 /hpf (0-5); Specific Gravity,Urine 1.034 (1.001-1.035); Squamous Epithelial Cell,Urine 16 /hpf (0-4); Urobilinogen,Urine <2.0 mg/dL (<2.0); WBC,Urine 62 /hpf (0-5)
[2024-06-16] MEDS: cefTRIAXone IN SWFI 1,000 MG/10 ML SYRINGE IVP STA (04:21)
--- NOTE | 2024-06-16 05:00 | US ---
EXAM: US Abdomen Limited, Right Upper Quadrant CLINICAL HISTORY: Significant RUQ TTP TECHNIQUE: Real-time ultrasound of the right upper quadrant with image documentation. COMPARISON: No relevant prior studies available. FINDINGS: Liver: 14.7 cm length. No mass. No intrahepatic bile duct dilation. Gallbladder: No gallstones. No gallbladder wall thickening or sonographic Hernadez's sign. Common bile duct: 3 mm. No stones. No dilation. Pancreas: Unremarkable as visualized. Right kidney: 11.3 cm length. No stones. No solid mass. No hydronephrosis. IMPRESSION: No acute abnormality.
--- NOTE | 2024-06-16 05:05 | US ---
EXAM: US First Trimester , Transabdominal CLINICAL HISTORY: Confirm TECHNIQUE: Real-time transabdominal obstetrical ultrasound of the maternal pelvis and a first trimester with image documentation. COMPARISON: 02/03/2023 FINDINGS: Gestation: Single live intrauterine . heart rate 169 bpm. Pala-rump length 2.2 cm, corresponding to 8 weeks 6 day size. Yolk sac is identified. No subchorionic hemorrhage identified. Uterus/cervix: 12.6 x 6.5 cm. No myometrial mass. Ovaries: Right ovary 2 x 2.4 x 1.7 cm. Left ovary 2.1 x 1.8 x 1.5 cm. No mass. Adnexa: No free fluid or adnexal mass. IMPRESSION: Single live intrauterine 8 weeks 6 day size.
[2024-06-16 06:55] VITALS: BP 103/84; PULSE 88; RESP 18; TEMP 97.8
[2024-06-16 13:19] LABS: N. gonorrhoeae,PCR Negative (Negative)
[2024-06-16 13:28] LABS: C. trachomatis,PCR Negative (Negative)
== END 2024-06-16 06:45 | disposition home or self-care (01) ==
LOC: EC 01:15
DX: O23.41 Unspecified infection of urinary tract in pregnancy, first trimester (principal); N39.0 Urinary tract infection, site not specified; Z3A.08 8 weeks gestation of pregnancy
CPT/HCPCS: 36415; 86900; 86901; 80053; 82150; 83605; 83690; 85025; 86140; 81001; 84702; 87491; 87591; 87086; 76705; 76801; 99284; 96374; 96361; J0696

== ENCOUNTER 2024-10-21 00:55 | Outpatient (CLI) | payer OTHER ==
[2024-10-21 01:17] LABS: Glucose,Whole Blood 104 mg/dL (70-110)
[2024-10-21 01:32] LABS: Bacteria,Urine Occasional /hpf; Bilirubin,Urine Negative (Negative); Blood,Urine Negative (Negative); Color,Urine Colorless; Glucose,Urine (UA) Negative (Negative); Ketones,Urine Negative (Negative); Leukocyte Esterase,Urine Large (Negative); Mucus,Urine Rare /hpf; Nitrite,Urine Negative (Negative); PH, Urine 6.5 (5.0-8.0); Protein,Urine Negative (Negative); RBC,Urine 4 /hpf (0-5); Specific Gravity,Urine 1.014 (1.001-1.035); Squamous Epithelial Cell,Urine 11 /hpf (0-4); Urobilinogen,Urine <2.0 mg/dL (<2.0); WBC,Urine 1 /hpf (0-5)
[2024-10-21 02:34] VITALS: BP 134/71; PULSE 92; RESP 16; TEMP 96.9
--- NOTE | 2024-11-12 09:16 | P.MSEPDOC ---
Presenting Problems - Arrival Data Date of Arrival on Unit: 10/21/24 Time of Arrival on Unit: 00:55 Mode of Transport: Ambulatory - Complaint OB-Reason for Admission/Chief Complaint: Acute Nausea/Vomiting, Dizziness Comment: Pt presents to triage with c/o dizziness and nausea/vomiting after being out at the fireworks all day with decreased fluid intake. Medical History - Information : 3 Para: 2 Term: 2 : 0 Abortions: Spontaneous or Elective: 0 Number of Living Children: 2 - Gestational Age Gestational Age by ESTEBAN (wks/days): 27 Weeks and 2 Days Review of Systems - Review of Systems Constitutional: No problems Breast: No problems ENT: No problems Cardiovascular: No problems Respiratory: No problems Gastrointestinal: No problems Genitourinary: No problems Musculoskeletal: No problems Neurological: Dizziness Skin: No problems Vital Signs - Temperature Temperature: 96.9 F Temperature Source: Temporal Artery Scan - Pulse Pulse Oximetery Pulse Rate: 92 Pulse Assessment Method: Pulse Oximetry - Respirations Respiratory Rate: 16 Oxygen Delivery Method: Room Air O2 Sat by Pulse Oximetry: 95 - Blood Pressure Right Arm Blood Pressure: 134/71 Blood Pressure Mean: 92 Blood Pressure Source: Automatic Cuff Medical Screen Scoring - Assessment - Baby A Baseline FHR: 140 Heart Rate - NICHD Category: Category I (Normal) Physician Notification - Physician Notified Physician Notified Date: 10/21/24 Physician Notified Time: 02:15 Physician: Savage Spring Order Received: Yes - Notification Comment Comment: RN spoke with Dr. Spring regarding triage pt c/o dizziness and nausea/vomiting after being out all day with decreased fluid intake. Reported category 1 FHT, no contx, urinalysis results WNL, vital signs WNL, accucheck 104. Order received to discharge pt home. Maternal Triage Index - Maternal Triage Index Presenting for scheduled procedure w/no complaint: No - Stat/Priority 1 Stat Priority 1: No - Urgent/Priority 2 Urgent Priority 2: No - Prompt/Priority 3 Prompt Priority 3: No - Non-Urgent/Priority 4 Non-Urgent Priority 4: Yes Criteria Met for Priority 4: Common discomforts of , nausea/vomiting, dizziness Disposition - Disposition OB Disposition: Discharge to home, Written follow up instructions reviewed Discharge Date: 10/21/24 Discharge Time: 02:20 I agree with the RN Medical Screening Exam: Yes Physician's MSE Comment: I have neither seen nor examined the patient. Case reviewed; plan agreed upon as documented in EMR&OBIX.: Yes Diagnosis: RELATED CONDITIONS, UNSPECIFIED, SECOND TRIMESTER
== END 2024-10-21 02:20 | disposition home or self-care (01) ==
LOC: FBPOP 00:55
PROVIDERS: ATTEND Obstetrics & Gynecology
DX: O21.2 Late vomiting of pregnancy (principal); Z3A.27 27 weeks gestation of pregnancy
CPT/HCPCS: 81001; G0463; 99213